=== PATIENT | male | born 1980 | race Caucasian/White ===

== ENCOUNTER 2023-02-10 08:45 | Outpatient (CLI) | payer OTHER, SELFPAY | END 2023-02-10 08:46 | disposition home or self-care (01) | PROVIDERS: PCP Family Medicine; Visit Provider Family Medicine | DX: Z00.00 Encounter for general adult medical examination without abnormal findings (principal); Z11.59 Encounter for screening for other viral diseases; Z13.6 Encounter for screening for cardiovascular disorders | CPT/HCPCS: 80053; 80061; 86803 ==

== ENCOUNTER 2024-06-22 12:19 | Outpatient (CLI) | payer OTHER, SELFPAY | END 2024-06-22 12:20 | disposition home or self-care (01) | PROVIDERS: PCP Family Medicine; Visit Provider Family Medicine | DX: Z13.220 Encounter for screening for lipoid disorders (principal); Z13.228 Encounter for screening for other metabolic disorders | CPT/HCPCS: 80053; 80061 ==

== ENCOUNTER 2024-07-12 10:00 | Emergency (ER) | payer OTHER, SELFPAY ==
[2024-07-12 10:08] VITALS: BP 148/92; PULSE 77; RESP 16; TEMP 36.2; O2SAT 99; BMI 30.4
--- NOTE | 2024-07-12 10:26 | ED.ABDPAIN ---
HPI - Abdominal Pain General Time Seen by Provider: 10:16 <Alma Vieyra MD - Last Filed: 07/15/24 07:16> Date Seen: 07/12/24 <Alma Vieyra MD - Last Filed: 07/15/24 07:16> Chief Complaint: Abdominal Pain <Alma Vieyra MD - Last Filed: 07/15/24 07:16> Stated Complaint: Abdominal Pain <Alma Vieyra MD - Last Filed: 07/15/24 07:16> Time Seen by Provider: 07/12/24 10:26 <Alma Vieyra MD - Last Filed: 07/15/24 07:16> Source: patient and RN notes reviewed <Alma Vieyra MD - Last Filed: 07/15/24 07:16> Mode of arrival: ambulatory <Alma Vieyra MD - Last Filed: 07/15/24 07:16> Limitations: no limitations <Alma Vieyra MD - Last Filed: 07/15/24 07:16> History of Present Illness HPI narrative: This 44-year-old male is coming in with complaint of left upper abdominal pain and concern of bowel changes since Tuesday of this past week, symptoms have been present about 5 days now. Started later on Tuesday, just noted some left upper quadrant discomfort. Has had a history of GERD in there were no GERD symptoms with this. [place] stool output was diminished, thought perhaps there was constipation. On Tuesday did do a Dulcolax in had some increased results. Tuesday and Tuesday the pain was a little less uncomfortable but still felt like there was diminished stool output from normal, states he is usually quite regular. Noted diminished flatus. Does have underlying ulcerative colitis and when that flares will be mucousy bloody stools, has not seen that. Did have last colonoscopy in January of this year and there was clinical in histologic clear report. Did discuss some intermittent left upper abdominal symptoms with them that he would sometimes have, did get MR enterography and there was no evidence of small-bowel colitis. He has had no fevers. Appetite is getting progressively diminished, did start having some nausea but has had no vomiting. He has had an appendectomy in 2005 but that is his only surgery. Did try more of a cleanout prep with Dulcolax, senna and half bottle of MiraLax Tuesday night without results, did go some Tuesday morning but typically would expect increased output with those type of medicines. Has done multiple preps before given his underlying ulcerative colitis. <Alma Vieyra MD - Last Filed: 07/15/24 07:16> MD elicited complaint: abdominal pain <Alma Vieyra MD - Last Filed: 07/15/24 07:16> Related Data Home Medications: Home Medications ?Medication ?Instructions ?Recorded ?Confirmed balsalazide 750 mg capsule 4,500 mg PO DAILY 02/10/23 07/12/24 melatonin 3 mg tablet 3 mg PO QHS 02/10/23 07/12/24 mesalamine 1,000 mg rectal 1,000 mg TN QPM 02/10/23 07/12/24 suppository Previous Rx's ?Medication ?Instructions ?Recorded cetirizine 10 mg tablet 10 mg PO QDAY #90 tabs 06/22/24 fluoxetine 20 mg capsule (Prozac) 20 mg PO QDAY #90 caps 06/22/24 pantoprazole 20 mg tablet,delayed 20 mg PO DAILY PRN gerd #90 tabs 06/22/24 release valacyclovir 1 gram tablet 2,000 mg (2 x 1 gram) PO BID 1 day 06/26/24 (Valtrex) #4 tabs methylprednisolone 4 mg tablets in See Rx Instructions PO .COMPLEX 07/12/24 a dose pack (Medrol (Babatunde)) #21 ea <Alma Vieyra MD - Last Filed: 07/15/24 07:16> Allergies/Adverse Reactions: Allergies Allergy/AdvReac Type Severity Reaction Status Date / Time No Known Allergy Allergy Unknown Unknown Uncoded 07/12/24 11:01 <Alma Vieyra MD - Last Filed: 07/15/24 07:16> Review of Systems Status of ROS Reports: 6 or more systems reviewed and unremarkable except as noted in History and below <Alma Vieyra MD - Last Filed: 07/15/24 07:16> [facility] Medical History: Medical History (Updated 07/12/24 @ 13:45 by Alam Vieyra MD) Ulcerative colitis ?K51.90 - Ulcerative colitis, unspecified, without complications (ICD-10) Acromioclavicular joint arthritis ?M19.019 - Primary osteoarthritis, unspecified shoulder (ICD-10) <Alma Vieyra MD - Last Filed: 07/15/24 07:16> Surgical History: Surgical History History of third molar tooth extraction ?K08.409 - Partial loss of teeth, unspecified cause, unspecified class (ICD-10) History of appendectomy ?Z90.49 - Acquired absence of other specified parts of digestive tract (ICD-10) <Alma Vieyra MD - Last Filed: 07/15/24 07:16> Family History: Family History (Updated 02/07/23 @ 08:54 by Aracely Chatterjee ~ PSR) Mother Diabetes Sister Psychiatric disorder <Alma Vieyra MD - Last Filed: 07/15/24 07:16> Social History: Social History (Updated 06/25/24 @ 11:14 by Evy Lamar ~ CTA) Narrative: , 2 children What is your current living situation?: I presently have a place to live Problems where you live: no known problems In the past 12 months, utilities in danger of being shut off: no In the past 12 mos, have been you worried that your food would run out before you had money to buy more?: never true In the past 12 mos, the food you bought just didn't last and you didn't have money to buy more?: never true Smoking Status: Former smoker Do you use any of these nicotine containing products: Smokeless Tobacco How often do you have a drink containing alcohol: monthly or less AUDIT-C Alcohol total score: 1 Non-prescribed substance use: denies use How often does anyone, including family, friends and others, physically hurt you: never How often does anyone, including family, friends and others, insult or talk down to you: never How often does anyone, including family, friends and others, threaten you with harm: never How often does anyone, including family, friends and others, scream or curse at you: never <Alma Vieyra MD - Last Filed: 07/15/24 07:16> Exam Const: Vital Signs, click to edit/add: Vital Signs - 24 hr 07/12/24 10:08 07/12/24 13:21 Temperature 97.2 F L 97.3 F L Pulse Rate [Pulse Oximeter] 77 59 L Respiratory Rate 16 18 Blood Pressure [Ri ght Upper Arm] 148/92 H 134/89 Pulse Oximetry 99 98 Oxygen Delivery Me thod Room Air Room Air Patient is a very pleasant 44-year-old male. Sclera clear, speaking in complete sentences. He does not appear to be in any significant distress. CV regular rate and rhythm, no murmur. Lungs are clear, good air entry, no wheezing or crackles. Abdomen is soft, nondistended, no significant tenderness at this time, certainly no rebound or guarding. Bowel sounds are present but they seem to be hypoactive in my opinion. There is no masses, no organomegaly felt. Patient is ambulatory into the ED of his own accord. <Alma Vieyra MD - Last Filed: 07/15/24 07:16> Vital Signs, click to edit/add: Vital Signs - 24 hr 07/12/24 10:08 07/12/24 13:21 Temperature 97.2 F L 97.3 F L Pulse Rate [Pulse Oximeter] 77 59 L Respiratory Rate 16 18 Blood Pressure [Ri ght Upper Arm] 148/92 H 134/89 Pulse Oximetry 99 98 Oxygen Delivery Me thod Room Air Room Air <Daniel Nguyễn MD - Last Filed: 07/12/24 16:39> Documenting provider has reviewed patient's vital signs: yes <Alma Vieyra MD - Last Filed: 07/15/24 07:16> Course Course ED Course: Patient declines any nausea or pain management at this time, is hoping to go back to work. He just wants to ensure no concerning underlying pathology. Will proceed with CT IV contrast of his abdomen and pelvis, full complement of labs. This does not seem to be consistent with GERD or gastritis, peptic ulcer disease. The decreased bowel habits and decreased flatus may point to bowel obstruction pathology. Could be atypical presentation of diverticulitis, does not seem to be consistent with ulcerative colitis flare. Will have lipase done. This does not sound urinary but if there is any CT evidence of concerns, will obtain urinalysis. <Alma Vieyra MD - Last Filed: 07/15/24 07:16> Reevaluation(s) Time of Reevaluation #1: 11:42 <Alma Vieyra MD - Last Filed: 07/15/24 07:16> Reevaluation #1: Have updated [place] on his CT report. Was aware of the renal cysts, this is not new. We discussed the new liver lesion since seen from last CT here. On his MR enterography, there was a probable hepatic hemangioma or cyst that was incompletely characterized. I do not know where that was. We will proceed with MR liver protocol. <Alma Vieyra MD - Last Filed: 07/15/24 07:16> Vital Signs Vital signs: Initial Vital Signs Temperature 97.2 F L 07/12/24 10:08 Temperature Source Temporal Artery Scan 07/12/24 10:08 Pulse Rate 77 07/12/24 10:08 Pulse Rhythm Regular 07/12/24 10:08 Respiratory Rate 16 07/12/24 10:08 Blood Pressure 148/92 H 07/12/24 10:08 Blood Pressure Mean 110 H 07/12/24 10:08 Blood Pressure Position Sitting 07/12/24 10:08 Pulse Oximetry 99 07/12/24 10:08 Oxygen Delivery Method Room Air 07/12/24 10:08 Vital Signs Temperature 97.2 F L 07/12/24 10:08 Pulse Rate 77 07/12/24 10:08 Respiratory Rate 16 07/12/24 10:08 Blood Pressure 148/92 H 07/12/24 10:08 Pulse Oximetry 99 07/12/24 10:08 Oxygen Delivery Method Room Air 07/12/24 10:08 Temperature 97.3 F L 07/12/24 13:21 Pulse Rate 59 L 07/12/24 13:21 Respiratory Rate 18 07/12/24 13:21 Blood Pressure 134/89 07/12/24 13:21 Pulse Oximetry 98 07/12/24 13:21 Oxygen Delivery Method Room Air 07/12/24 13:21 <Alma Vieyra MD - Last Filed: 07/15/24 07:16> Initial Vital Signs Temperature 97.2 F L 07/12/24 10:08 Temperature Source Temporal Artery Scan 07/12/24 10:08 Pulse Rate 77 07/12/24 10:08 Pulse Rhythm Regular 07/12/24 10:08 Respiratory Rate 16 07/12/24 10:08 Blood Pressure 148/92 H 07/12/24 10:08 Blood Pressure Mean 110 H 07/12/24 10:08 Blood Pressure Position Sitting 07/12/24 10:08 Pulse Oximetry 99 07/12/24 10:08 Oxygen Delivery Method Room Air 07/12/24 10:08 Vital Signs Temperature 97.2 F L 07/12/24 10:08 Pulse Rate 77 07/12/24 10:08 Respiratory Rate 16 07/12/24 10:08 Blood Pressure 148/92 H 07/12/24 10:08 Pulse Oximetry 99 07/12/24 10:08 Oxygen Delivery Method Room Air 07/12/24 10:08 Temperature 97.3 F L 07/12/24 13:21 Pulse Rate 59 L 07/12/24 13:21 Respiratory Rate 18 07/12/24 13:21 Blood Pressure 134/89 07/12/24 13:21 Pulse Oximetry 98 07/12/24 13:21 Oxygen Delivery Method Room Air 07/12/24 13:21 <Daniel Nguyễn MD - Last Filed: 07/12/24 16:39> MDM - Abdominal Pain MDM Narrative Medical decision making narrative: Care for this patient was [place] is here waiting for MRI results. Radiology report indicates a hemangioma in the liver that is increased in size since previous study. There are otherwise no acute findings. This along with CT imaging otherwise and lab results are all reassuring to the patient. He is okay to be discharged home. I did provide a prescription for Medrol Dosepak. <Daniel Nguyễn MD - Last Filed: 07/12/24 16:39> Lab Data Attestation: I reviewed the patient's lab results. <Alma Vieyra MD - Last Filed: 07/15/24 07:16> Labs: Lab Results 07/12/24 Range/Units 10:44 WBC 5.79 (4.50-11.00) K/uL RBC 5.08 (4.30-5.90) m/uL Hgb 15.3 (13.5-17.5) gm/dL Hct 44.4 (37.0-53.0) % MCV 87 (80-100) fL MCH 30 (26-34) pg MCHC 35 (32-36) gm/dL RDW Coeff of Ame 12.4 (11.5-15.5) % Plt Count 208 (140-440) K/uL Neut % (Auto) 57.7 (42.0-72.0) % Lymph % (Auto) 29.4 (20-44) % [place] % (Auto) 10.2 (0.0-11.0) % Eos % (Auto) 1.6 (0.0-7.0) % Baso % (Auto) 0.9 (0.0-3.0) % Neut # (Auto) 3.35 (1.7-7.0) K/uL Lymph # (Auto) 1.70 (0.90-2.90) K/uL [place] # (Auto) 0.60 (0.00-0.90) K/UL Eos # (Auto) 0.09 (0.00-0.50) K/uL Baso # (Auto) 0.05 (0.00-0.30) K/uL Abs Immat Gran (auto) 0.01 (0.00-0.30) K/uL Imm/Tot Granulo (auto) 0.2 % Sodium 139 (135-149) mmol/L Potassium 4.1 (3.6-5.1) mmol/L Chloride 106 (96-114) mmol/L Carbon Dioxide 26 (20-32) mmol/L Anion Gap 7 (7-15) mEq/L BUN 14 (5-24) mg/dL Creatinine 1.0 (0.5-1.5) mg/dL Estimated Creat Clear 91.20 Estimated GFR 95 ml/min Glucose 93 (60-115) mg/dL Lactate 1.5 (0.5-1.9) mmol/L Calcium 9.0 (8.4-10.6) mg/dL Total Bilirubin 0.4 (0.1-1.5) mg/dL AST 24 (12-35) U/L ALT 21 (4-50) U/L Alkaline Phosphatase 70 (40-150) U/L C-Reactive Protein < 0.5 L (0.5-1.0) mg/dL Total Protein 6.7 (6.0-8.3) g/dL Albumin 4.4 (3.3-5.0) g/dL Lipase 49 (23-300) U/L <Alma Vieyra MD - Last Filed: 07/15/24 07:16> Lab Results 07/12/24 Range/Units 10:44 WBC 5.79 (4.50-11.00) K/uL RBC 5.08 (4.30-5.90) m/uL Hgb 15.3 (13.5-17.5) gm/dL Hct 44.4 (37.0-53.0) % MCV 87 (80-100) fL MCH 30 (26-34) pg MCHC 35 (32-36) gm/dL RDW Coeff of Ame 12.4 (11.5-15.5) % Plt Count 208 (140-440) K/uL Neut % (Auto) 57.7 (42.0-72.0) % Lymph % (Auto) 29.4 (20-44) % [place] % (Auto) 10.2 (0.0-11.0) % Eos % (Auto) 1.6 (0.0-7.0) % Baso % (Auto) 0.9 (0.0-3.0) % Neut # (Auto) 3.35 (1.7-7.0) K/uL Lymph # (Auto) 1.70 (0.90-2.90) K/uL [place] # (Auto) 0.60 (0.00-0.90) K/UL Eos # (Auto) 0.09 (0.00-0.50) K/uL Baso # (Auto) 0.05 (0.00-0.30) K/uL Abs Immat Gran (auto) 0.01 (0.00-0.30) K/uL Imm/Tot Granulo (auto) 0.2 % Sodium 139 (135-149) mmol/L Potassium 4.1 (3.6-5.1) mmol/L Chloride 106 (96-114) mmol/L Carbon Dioxide 26 (20-32) mmol/L Anion Gap 7 (7-15) mEq/L BUN 14 (5-24) mg/dL Creatinine 1.0 (0.5-1.5) mg/dL Estimated Creat Clear 91.20 Estimated GFR 95 ml/min Glucose 93 (60-115) mg/dL Lactate 1.5 (0.5-1.9) mmol/L Calcium 9.0 (8.4-10.6) mg/dL Total Bilirubin 0.4 (0.1-1.5) mg/dL AST 24 (12-35) U/L ALT 21 (4-50) U/L Alkaline Phosphatase 70 (40-150) U/L C-Reactive Protein < 0.5 L (0.5-1.0) mg/dL Total Protein 6.7 (6.0-8.3) g/dL Albumin 4.4 (3.3-5.0) g/dL Lipase 49 (23-300) U/L <Daniel Nguyễn MD - Last Filed: 07/12/24 16:39> Imaging Data CT scan - abdomen: Attestation: I have reviewed the pertinent imaging results. <Alma Vieyra MD - Last Filed: 07/15/24 07:16> Radiologist's impression: Patient: RADHA HALE Facility:?[facility] Patient ID:?[id number] Site Patient ID:?[id number]. Site :?[id number] Study:?CT-Abdomen/Pelvis W/ 98CC [id number] 11:00:21 AM Ordering Physician:?Jarrell Marquez Final Report: INDICATION: Left upper quadrant abdominal pain. Decreased bowel output. Nausea. COMPARISON: August 02, 2017 TECHNIQUE: CT examination of the abdomen and pelvis was performed following the uneventful intravenous administration of 98 cc of Isovue 370. Thin section axial images were obtained from the lung bases through the pubic symphysis. Oral contrast was not administered. Please note that all CT scans at this facility use dose modulation, iterative reconstruction, and/or weight-based dosing when appropriate to reduce radiation dose to as low as reasonably achievable. FINDINGS: LUNG BASES: The lung bases as visualized appear normal.The heart size is normal at the lung bases. LIVER/BILIARY SYSTEM:Hepatic steatosis. Hepatic near the ileana hepatis measuring 2.8 centimeters.This is indeterminate and was not present previously. Recommend hepatic MRI for further evaluation. ADRENALS: Normal KIDNEYS, URETERS and BLADDER:Benign-appearing low-density lesions likely cysts. No calcified calculus. No current or recent obstructive uropathy. The bladder appears normal SPLEEN:Normal appearance. PANCREAS: Appears normal. RETROPERITONEUM and MESENTERY: There is no mass, adenopathy or aortic aneurysm. GASTROINTESTINAL SYSTEM: There is no evidence of diverticulitis, colitis, mechanical obstruction, or appendicitis. The small bowel as visualized appears normal.A few scattered diverticula are noted PELVIS: No mass, adenopathy or free fluid. OSSEOUS STRUCTURES and ABDOMINAL WALL: There is an age-appropriate appearance of the osseous structures.No significant abdominal wall defect. OTHER: No free fluid or free air. IMPRESSION: 1. Hepatic mass near the ileana hepatis measuring 2.8 centimeter status new since the prior study. Imaging features are indeterminate on this single-phase contrast-enhanced study. Follow up evaluation for characterization by MRI is advised. 2. Other incidental nonacute findings as discussed above. Please see the comments. Please note that all CT scans at this facility use dose modulation, iterative reconstruction, and/or weight-based dosing when appropriate to reduce radiation dose to as low as reasonably achievable. Dictated by Andrés Thomason MD @ 07/12/2024 11:25:04 AM (Electronic Signature) <Alma Vieyra MD - Last Filed: 07/15/24 07:16> Discharge Plan Discharge Clinical Impression: Abdominal pain Qualifiers: Abdominal location: upper abdomen, unspecified Qualified Code(s): R10.10 - Upper abdominal pain, unspecified <Alma Vieyra MD - Last Filed: 07/15/24 07:16> Patient Disposition: Home, Self-Care <Alma Vieyra MD - Last Filed: 07/15/24 07:16> Condition: Stable <Alma Vieyra MD - Last Filed: 07/15/24 07:16> Prescriptions: New methylprednisolone [Medrol (Babatunde)] 4 mg tablets,dose pack See Rx Instructions .ROUTE .COMPLEX Qty: 21 0RF Rx Instructions: orally per package directions No Action fluoxetine [Prozac] 20 mg capsule 20 mg PO QDAY Qty: 90 3RF pantoprazole 20 mg tablet,delayed release (DR/EC) 20 mg PO DAILY PRN (Reason: gerd) Qty: 90 3RF cetirizine 10 mg tablet 10 mg PO QDAY Qty: 90 3RF mesalamine 1,000 mg suppository 1,000 mg TN QPM balsalazide 750 mg capsule 4,500 mg PO DAILY melatonin 3 mg tablet 3 mg PO QHS valacyclovir [Valtrex] 1 gram tablet 2,000 mg PO BID 1 Days Qty: 4 3RF <Alma Vieyra MD - Last Filed: 07/15/24 07:16> Follow Up/Referrals: Jessica Clark MD [Primary Care Provider] - <Alma Vieyra MD - Last Filed: 07/15/24 07:16> Stand Alone Forms: [facility] Info Instructions <Alma Vieyra MD - Last Filed: 07/15/24 07:16>
[2024-07-12 10:49] LABS: Lactate* 1.5 mmol/L (0.5-1.9)
[2024-07-12 10:54] LABS: Basophils Absolute Auto 0.05 K/uL (0.00-0.30); Basophils Percent Auto 0.9 % (0.0-3.0); Eosinophils Absolute Auto 0.09 K/uL (0.00-0.50); Eosinophils Percent Auto 1.6 % (0.0-7.0); Hematocrit 44.4 % (37.0-53.0); Hemoglobin* 15.3 gm/dL (13.5-17.5); Immature Granulocytes Abs Auto 0.01 K/uL (0.00-0.30); Immature Granulocytes Pct Auto 0.2 %; Lymphocytes Percent Auto 29.4 % (20-44); Mean Corpuscular HGB Conc 35 gm/dL (32-36); Mean Corpuscular Hemoglobin 30 pg (26-34); Mean Corpuscular Volume 87 fL (80-100); Monocytes Percent Auto 10.2 % (0.0-11.0); Neutrophils Absolute Auto 3.35 K/uL (1.7-7.0); Neutrophils Percent Auto 57.7 % (42.0-72.0); Platelet Count* 208 K/uL (140-440); RDW Coefficient of Variation % 12.4 % (11.5-15.5); Red Blood Count 5.08 m/uL (4.30-5.90); White Blood Count* 5.79 K/uL (4.50-11.00)
[2024-07-12 10:56] LABS: Slide Review Reflex No
[2024-07-12 11:04] LABS: Albumin* 4.4 g/dL (3.3-5.0); Chloride* 106 mmol/L (96-114)
[2024-07-12 11:05] LABS: Potassium* 4.1 mmol/L (3.6-5.1); Sodium* 139 mmol/L (135-149)
[2024-07-12 11:07] LABS: Estimated Glomerular Filt Rate 95 ml/min
[2024-07-12 11:08] LABS: Alanine Aminotransferase* 21 U/L (4-50); Alkaline Phosphatase* 70 U/L (40-150); Anion Gap 7 mEq/L (7-15); Aspartate Amino Transferase* 24 U/L (12-35); Bilirubin Total* 0.4 mg/dL (0.1-1.5); Blood Urea Nitrogen* 14 mg/dL (5-24); Carbon Dioxide* 26 mmol/L (20-32); Glucose* 93 mg/dL (60-115); Lipase* 49 U/L (23-300); Total Protein* 6.7 g/dL (6.0-8.3)
[2024-07-12 11:13] LABS: C Reactive Protein* < 0.5 mg/dL (0.5-1.0)
--- NOTE | 2024-07-12 11:43 | CRLHL7_ITS ---
For Patients: As a result of the Century Cures Act, medical imaging exams and procedure reports are released immediately into your electronic medical record. You may view this report before your referring provider. If you have questions, please contact your health care provider. Indication: Liver lesion detected on CT. Upper abdominal pain. Technique: MRI of the abdomen performed with and without intravenous contrast (20 milliliters of Dotarem). Magnetic field strength was 1.5 [place]. Comparison: 07/12/2024 CT of the abdomen and pelvis Findings: No pleural effusion. Smooth hepatic contour. Mildly decreased hepatic signal intensity on opposed phase imaging compatible with mild steatosis. A 2.8 centimeter near T2 fluid signal intensity mass within the right hepatic lobe demonstrating peripheral discontinuous nodular enhancement which gradually fills in over delayed contrast phases is compatible with a hemangioma and has increased in size since 08/02/2017 at which point it measured 1.6 centimeters (04/05). A subcentimeter T2 hyperintense focus in the caudate lobe of the liver is too small to characterize, but statistically likely to represent a cyst. Normal gallbladder. Normal caliber of the biliary tree. Normal adrenal glands. No hydronephrosis. There are several small bilateral renal cysts. No splenomegaly. Normal pancreas. No focal abnormally dilated loops of bowel within the field of view. No free fluid in the visualized portion of the peritoneal cavity. No evident regional lymphadenopathy. Normal caliber of the visualized aorta. Normal abdominal wall. There are osseous degenerative changes. Impression: 1. No acute findings. 2. A 2.8 centimeter hepatic hemangioma has slowly increased in size since 08/07/2017 when it measured 1.6 centimeters. 3. Mild hepatic steatosis. Dictated by Kadeem Garduno MD @ 07/12/2024 3:58:03 PM (Electronically Signed)
[2024-07-12 13:21] VITALS: BP 134/89; PULSE 59; RESP 18; TEMP 36.3; O2SAT 98
== END 2024-07-12 16:43 | disposition home or self-care (01) ==
PROVIDERS: Family Medicine; Emergency Provider Emergency Medicine Emergency Medical Services; PCP Family Medicine
DX: R10.10 Upper abdominal pain, unspecified (principal)
CPT/HCPCS: 36415; 74177; 74183; 80053; 83605; 83690; 85025; 86140; 99284; 99285; A9575; Q9967

== ENCOUNTER 2025-07-29 07:43 | Outpatient (CLI) | payer OTHER, SELFPAY | END 2025-07-29 07:44 | disposition home or self-care (01) | PROVIDERS: PCP Family Medicine; Visit Provider Family Medicine | DX: Z00.00 Encounter for general adult medical examination without abnormal findings (principal); K51.90 Ulcerative colitis, unspecified, without complications | CPT/HCPCS: 80053; 80061; G0103 ==